=== PATIENT | female | born 1985 | race American Indian/Alaskan Native ===

== ENCOUNTER 2016-09-08 18:02 | Emergency (ER) | payer SELFPAY ==
[2016-09-08 18:19] VITALS: BP 109/72
--- NOTE | 2016-09-08 20:25 | Emergency Department Report ---
HPI - General Chief Complaint: Skin/Abscess/Foreign Body Time Seen by Provider: 09/08/16 19:33 - HPI HPI: Patient is a 31-year-old female presents to ED saying she is cyst on her left buttock began in June. Patient states she was seen at the [facility] in June and was given some antibiotics and abscess was drained from her left buttock cheek. Patient states since then has been progressively healing. Patient states she's had some tingling and burning whenever she applies orals the left buttock. She denies fevers/chills/nausea/vomiting /abdominal pain ED Past Medical Hx - Past Medical History Previous Medical History?: No - Surgical History Additional Surgical History: tonsillectomy/adnoids,D&C - Social History Smoking Status: Current Every Day Smoker Substance Use Type: Alcohol - Medications Home Medications: Home Medications Medication Instructions Recorded Confirmed Last Taken Type Neomycn/Baci Zn/Pmyx Bs/Pramox 1 applic TP TID #1 tube 09/08/16 Unknown Rx [Triple Antibiotic Plus Ointmnt] ED Review of Systems ROS: Stated complaint: ABCESS ON BUTTOCKS Other details as noted in HPI Constitutional: denies: chills, fever Eyes: denies: eye pain, eye discharge, vision change ENT: denies: ear pain, throat pain Respiratory: denies: cough, shortness of breath, wheezing Cardiovascular: denies: chest pain, palpitations Endocrine: no symptoms reported Gastrointestinal: denies: abdominal pain, nausea, diarrhea Genitourinary: denies: urgency, dysuria, discharge Musculoskeletal: denies: back pain, joint swelling, arthralgia Skin: denies: rash, lesions Neurological: denies: headache, weakness, paresthesias Psychiatric: denies: anxiety, depression Hematological/Lymphatic: denies: easy bleeding, easy bruising Physical Exam - Physical Exam Vital Signs: Vital Signs 09/08/16 09/08/16 18:15 20:11 Temperature 98.3 F Pulse Rate 70 Respiratory 18 18 Rate Blood Pressure 109/72 O2 Sat by Pulse 99 Oximetry Physical Exam: GENERAL: Alert and oriented x3, no apparent distress, Normal Gait, atraumatic. HEAD: Head is normocephalic and a-traumatic. LUNGS: Symetrical with respiration, No wheezing, no rales or crackles, CTAB. HEART: S1, S2 present, regular rate and rhythm without murmur, no rubs, no gallops. ABDOMEN: No organomegaly was noted,Positive bowel sounds, soft, and non- distended. . Nontender to palpation on all Quadrants, NO CVA tenderness. BUTTOCK: Moderately healed lesion on the left cheek. 3 separate lesions to the well-healed one lesion moderately healed SKIN: Warm and dry, No lesions, No ulceration or induration present. ED Course Vital Signs 09/08/16 09/08/16 18:15 20:11 Temperature 98.3 F Pulse Rate 70 Respiratory 18 18 Rate Blood Pressure 109/72 O2 Sat by Pulse 99 Oximetry ED Medical Decision Making - Medical Decision Making 31-year-old female presents to ED with 1 check on her left buttock ED course: Discussed the patient won't appropriately healing. Discussed the applied triple antibiotic 3 times a day for the remainder of the week. Discussed no baths for the next 2 weeks. Discussed to keep area dry and clean. Vital signs are normal patient is in no acute distress patient understands instructions given a suture follow-up. Critical care attestation.: If time is entered above; I have spent that time in minutes in the direct care of this critically ill patient, excluding procedure time. ED Disposition Clinical Impression: Wound check, abscess Disposition: DISCHARGED TO HOME OR SELFCARE Is pt being admited?: No Does the pt Need Aspirin: No Condition: Stable Instructions: Acute Wound Care (ED) Additional Instructions: Apply triple antibiotic about a 2 abrasion as described will heal appropriately. Prescriptions: Neomycn/Baci Zn/Pmyx Bs/Pramox [Triple Antibiotic Plus Ointmnt] 1 applic TP TID #1 tube Referrals: PRIMARY CARE, [Primary Care Provider] - 3-5 Days [facility] [Outside] - 3-5 Days [facility] [Outside] - 3-5 Days [facility] [Outside] - 3-5 Days Forms: Work/School Release Form(ED) Time of Disposition: 20:25
== END 2016-09-08 20:27 | disposition home or self-care (01) ==
LOC: ED 18:02
DX: Z48.01 Encounter for change or removal of surgical wound dressing (principal); F17.200 Nicotine dependence, unspecified, uncomplicated
CPT/HCPCS: 99282

== ENCOUNTER 2017-02-17 11:41 | Emergency (ER) | payer MEDICAID ==
[2017-02-17 11:50] VITALS: BP 112/66
[2017-02-17 12:19] LABS: Bacteria,Urine 2+ /HPF (Negative); Mucus,Urine FEW /HPF
--- NOTE | 2017-02-17 12:25 | Emergency Department Report ---
ED Dysuria HPI - HPI Chief Complaint: Urogenital-Female Stated Complaint: FOREIGN BODY IN VAGINIA Time Seen by Provider: 02/17/17 11:52 Duration: 5 Days Location of Discomfort: Urethra (dysuria) Severity: Mild Symptoms: Dysuria: Yes, Frequency: No, Suprapubic Pain: No, Flank Pain: No, Fever: No, Hematuria: No, Abdominal Pain: No, Previous UTI's: Yes Other History: pt thinks tampon may be stuck in her. 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 No distress. Alert and acting appropriately. 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 will tx for bv and dc home w obgyn follow up ED Medical Decision Making - Medical Decision Making see note - Differential Diagnosis fb vag Critical care attestation.: If time is entered above; I have spent that time in minutes in the direct care of this critically ill patient, excluding procedure time. ED Disposition Clinical Impression: Vaginitis Disposition: DC-01 TO HOME OR SELFCARE Is pt being admited?: No Does the pt Need Aspirin: No Condition: Stable Instructions: Bacterial Vaginosis (ED) Additional Instructions: cotton undergarments when dancing no harsh soaps or frag. med as ordered do not drink while on this it will make you sick eat yogurt every day hydrate well follow up with obgyn Prescriptions: metroNIDAZOLE [Flagyl] 500 mg PO Q12HR #14 tab Referrals: CHAGO ARREDONDO MD [Referring] - 3-5 Days LISETH MERRILL MD [Referring] - 3-5 Days Time of Disposition: 12:45
[2017-02-17 12:31] LABS: Bilirubin,Urine Negative (Negative); Blood,Urine Negative (Negative); Ketones,Urine Negative (Negative); Leukocyte Esterase,Urine Negative (Negative); Nitrite,Urine Negative (Negative); Protein,Urine <15 mg/dL mg/dL (Negative); Urobilinogen,Urine < 2.0 mg/dL (<2.0)
== END 2017-02-17 12:45 | disposition home or self-care (01) ==
LOC: ED 11:41
DX: N76.0 Acute vaginitis (principal); F17.200 Nicotine dependence, unspecified, uncomplicated
CPT/HCPCS: 81001; 81025; 99283

== ENCOUNTER 2017-05-14 08:20 | Emergency (ER) | payer MEDICAID ==
[2017-05-14 10:29] VITALS: BP 105/55
== END 2017-05-14 11:11 ==
LOC: ED 08:20
DX: R21 Rash and other nonspecific skin eruption (principal); Z53.21 Procedure and treatment not carried out due to patient leaving prior to being seen by health care provider

== ENCOUNTER 2017-06-06 14:08 | Emergency (ER) | payer MEDICAID ==
[2017-06-06 14:12] VITALS: BP 119/41
--- NOTE | 2017-06-06 15:17 | Emergency Department Report ---
ED Rash HPI - HPI Chief Complaint: Skin Rash Stated Complaint: BACTERIAL INFECTION/SKIN RASH Time Seen by Provider: 06/06/17 14:45 Suspected Cause: Unknown Rash Symptoms: Yes Itching, Yes Peeling, No Facial Swelling, No Tongue/Oral Swelling, No Breathing Difficulties, No Choking Sensation, No Wheezing/Dyspnea, No Blistering, No Fever, No Lightheaded, No Malaise, No Myalgias Severity: moderate Other History: 32-year-old female with no prior medical history presents with generalized, erythematous, rash or lesions on her back upper back and neck region. Patient states she noticed a rash about 3 weeks ago. Patient states rash is spread, itching. He denies fever nausea vomiting abdominal pain or any other problems. ED Review of Systems ROS: Stated complaint: BACTERIAL INFECTION/SKIN RASH Other details as noted in HPI Constitutional: denies: chills, fever Eyes: denies: eye pain, eye discharge, vision change ENT: denies: ear pain, throat pain Respiratory: denies: cough, shortness of breath, wheezing Cardiovascular: denies: chest pain, palpitations Endocrine: no symptoms reported Gastrointestinal: denies: abdominal pain, nausea, diarrhea Genitourinary: denies: urgency, dysuria, discharge Musculoskeletal: denies: back pain, joint swelling, arthralgia Skin: denies: rash, lesions Neurological: denies: headache, weakness, paresthesias Psychiatric: denies: anxiety, depression Hematological/Lymphatic: denies: easy bleeding, easy bruising ED Past Medical Hx - Past Medical History Previous Medical History?: No - Surgical History Past Surgical History?: Yes Additional Surgical History: tonsillectomy/adnoids,D&C - Social History Smoking Status: Current Some Day Smoker Substance Use Type: Alcohol - Medications Home Medications: Home Medications Medication Instructions Recorded Confirmed Last Taken Type metroNIDAZOLE [Flagyl] 500 mg PO Q12HR #14 tab 02/17/17 Unknown Rx Calamine/Zinc Oxide [Calamine 1 applic TP DAILY #1 lotion 06/06/17 Unknown Rx Lotion] predniSONE [Deltasone] 20 mg PO QDAY #5 tab 06/06/17 Unknown Rx Rash Exam - Exam General: Vital signs noted. No distress. Alert and acting appropriately. SKIN: single grouped Cluster, erythematous, maculopapular, rash seen on the lower mid back, upper back and neck region. HEENT: No Periorbital Edema, No Conjuctival Injection, No Chemosis, No Perioral Edema, No Tongue Edema, No Uvular Edema, No Compromised Airway, No Drooling Lungs: Yes Good Air Exchange (Normal Breath Sounds), No Wheezes, No Ronchi, No Stridor, No Cough, No Labored Respirations, No Retractions, No Use of Accessory Muscles, No Other Abnormal Lung Sounds Heart: Yes Regular, No Murmur Skin: Yes Erythema, No Urticarial Rash, No Tenderness, No Edema, No Encrustations Other: Positive: Abdomen Normal, Neurologic Normal, Musculoskeletal Normal ED Course Vital Signs 06/06/17 14:11 Temperature 97.8 F Pulse Rate 70 Respiratory 20 Rate Blood Pressure 119/41 O2 Sat by Pulse 100 Oximetry ED Medical Decision Making - Medical Decision Making 32-year-old female presents with a generalized chronic rash She received Solu-Medrol IM in ED Rash has been spreading for the past 3 weeks. I discussed the patient cleaning out her bed in the 4 bedbugs. Discussed to follow up with the primary care physician Patient states she has a dermatology appointment [facility] on Sunday Vital signs normal. Patient is in no acute or respiratory distress. Critical care attestation.: If time is entered above; I have spent that time in minutes in the direct care of this critically ill patient, excluding procedure time. ED Disposition Clinical Impression: Rash and nonspecific skin eruption Disposition: - TO HOME OR SELFCARE Is pt being admited?: No Does the pt Need Aspirin: No Condition: Stable Instructions: Zinc Oxide (On the skin), Insect Bite or Sting (ED), Acute Rash ( ED), Viral Exanthem (ED) Additional Instructions: Make sure to follow up with the electrolytic etcher as discussed. Take all your medications as you've been prescribed. If you have any worsening symptoms or develop new symptoms please return to ED immediately. Prescriptions: Calamine/Zinc Oxide [Calamine Lotion] 1 applic TP DAILY #1 lotion predniSONE [Deltasone] 20 mg PO QDAY #5 tab Referrals: PRIMARY CARE, [Primary Care Provider] - 3-5 Days Forms: Accompanied Note, Work/School Release Form(ED) Time of Disposition: 15:32
== END 2017-06-06 16:50 | disposition home or self-care (01) ==
LOC: ED 14:08
DX: R21 Rash and other nonspecific skin eruption (principal); F17.200 Nicotine dependence, unspecified, uncomplicated; Z90.89 Acquired absence of other organs
CPT/HCPCS: 96372; 99282; J2930